=== PATIENT | male | born 1990 | race Caucasian/White ===

== ENCOUNTER 2017-09-30 02:43 | Emergency (ER) | payer OTHER ==
[~2017-09-30] VITALS: Ht 180.3 cm; Wt 100.0 kg
[2017-09-30] MEDS ORDERED: LIDOCAINE HCL 1% 20ML VIAL (Pyxis) INJ INFIL ONE (05:15)
[2017-09-30] MEDS ORDERED: BACITRACIN ZINC OINT UDPKT TOP ONE (07:00)
[2017-09-30 07:10] VITALS: BP 131/85
== END 2017-09-30 07:14 | disposition home or self-care (01) ==
LOC: ER 02:43
DX: S62.663A Nondisplaced fracture of distal phalanx of left middle finger, initial encounter for closed fracture (principal); Z88.0 Allergy status to penicillin; W23.0XXA Caught, crushed, jammed, or pinched between moving objects, initial encounter; Y93.89 Activity, other specified; Y92.89 Other specified places as the place of occurrence of the external cause; Y99.8 Other external cause status
CPT/HCPCS: 11730; 64450; 73120; 99284; J3490; Z7610